=== PATIENT | male | born 1925 | race Caucasian/White ===

== ENCOUNTER → 2016-07-29 | Outpatient (CLI) | payer OTHER, MEDICARE ==
[~2016-07-29] VITALS: Ht 172.7 cm; Wt 90.7 kg
[~2016-07-29] MED LIST: ACETAMINOPHEN325 M1 PO; APAP500 PO; COLACE100 MG PO; COUMADIN 5 MG TA5 M1 PO; FOLIC ACID1 MG PO; IRON325 PO; LOTENSIN20 MG PO; NORCO 5-325 TA1 EACH PO; PERCOCET 10-321 EACH; PREVACID 30MG C30 M1 PO; SULFASALAZINE500 M4 PO; ZOCOR 20 MG TAB20 M1 PO
--- NOTE | ~2016-07-29 | P ---
[facility] [place] [address] PROCEDURE REPORT Name: PATRICEMONIKA Room #: REG FARA EdwardsErick#: [id number] Admission: 07/29/16 Attend Phys: Federico Loja MD Discharge: Date of : [birth year] Report #: [id number] THIS REPORT FOR: //name// CC: Federico Loja BRIEF HISTORY: The patient is an 89-year-old male who recently has had bouts of chest pain and upper abdominal pain after eating. He also described regurgitation of liquidy material. He has never had an upper endoscopy. However, he did have a CT in the past, which revealed a large hiatus hernia. PREOPERATIVE DIAGNOSES: Atypical chest pain and reflux. POSTOPERATIVE DIAGNOSES: 1. 8 cm sliding type hiatus hernia. 2. ____ esophagus secondary to large hiatus hernia. MEDICATIONS: Deep sedation with propofol per Anesthesia. SPECIMEN: None. ESTIMATED BLOOD LOSS: None. PROCEDURE: EGD. FINDINGS: Prior to propofol sedation, procedure of upper endoscopy discussed with the patient as well as potential risks, benefits, and complications. He indicates he understands and desires to proceed. With the patient in left lateral decubitus position, the [employer] video endoscope was inserted in the cervical esophagus under direct vision without difficulty. Examination of this organ through its entire length revealed normal esophageal mucosa down the squamocolumnar junction. The distal esophagus was tortuous secondary to a large hiatus hernia. The squamocolumnar junction was normal. There was no evidence of Klein's strictures or masses. The gastroesophageal junction was at about 33 cm. The scope was advanced into very large hiatus hernia. Mucosa and hernia was normal. A small amount of liquid was aspirated away. I was able to retroflex the scope in the hiatus hernia. The diaphragmatic hiatus was at about 41 cm and findings were consistent with 8 cm sliding type hiatus hernia. Scope was advanced into the distal stomach, which was examined on end view as well as retroflexed views. He had normal mucosa, which is intact. No ulcers or erosions were seen. Upon retroflexion, large hiatus hernia was seen. Mass lesions were not seen. Scope was advanced into the stomach. The pylorus was inspected and noted to be within normal limits. The duodenal sweep down to the third portion was normal as well. At that point, the scope was slowly withdrawn and careful circumferential views confirmed the [facility] [address] [place] [address] PROCEDURE REPORT Name: MONIKA IBRAHIM Room #: REG CLI [place]#: [id number] Admission: 07/29/16 Attend Phys: Federico Loja MD Discharge: Date of : [birth year] Report #: [id number] above findings. The patient tolerated the procedure well. CONDITION OF THE PATIENT UPON DISCHARGE: Following procedure, the patient drowsy, aroused, and conversant and will be discharged home when fully ambulatory. INSTRUCTIONS TO THE PATIENT AND FAMILY AT THE TIME OF DISCHARGE: Symptoms are likely related to his large hiatus hernia. At this point in time, we will try a proton pump inhibitor. The patient reports he is actually a little bit better and if he avoids certain foods such as ham, he does better. I advised the patient to avoid overeating and to avoid consuming a large amount of food and liquid and then lying supine. He may use the PPI such as omeprazole 20 mg daily as needed. If he continues to have difficulty, surgical repair may be indicated at a later date, but we can certainly try medical management at this point in time. He is to return to see me in followup in the office in about 8 weeks. By: [id number] Federico Loja MD /nt
== END ==
LOC: GI 08:19
DX: K44.9 Diaphragmatic hernia without obstruction or gangrene (principal); K21.9 Gastro-esophageal reflux disease without esophagitis; Z87.891 Personal history of nicotine dependence
CPT/HCPCS: 62110; 62900